=== PATIENT | male | born 1955 | race Two or more races ===

== ENCOUNTER 2017-04-24 12:02 | Inpatient (IN) | payer OTHER ==
--- NOTE | 2017-04-24 20:30 | HP ---
COWS - Scale Resting Pulse: 0= [place] 80 or Below Sweatin=Flushed/Facial Moisture Restless Observation: 1= Difficult to Sit Still Pupil Size: 1= Pupils >than Normal Bone or Joint Aches: 4=Acute Joint/Muscle Pain Runny Nose/ Eye Tearin= Runny Nose/Eyes GI Upset > 30mins: 0= None Tremor Observation: 2= Slight Tremor Visible Yawning Observation: 1= 1-2x During Session Anxiety or Irritability: 2=Irritable/Anxious Goose Flesh Skin: 0=Smooth Skin COWS Score: 15 Admission ROS S - HPI Chief Complaint: SEEKING DETOX FOR HEROIN DEPENDENCE Allergies/Adverse Reactions: Allergies Allergy/AdvReac Type Severity Reaction Status Date / Time No Known Allergies Allergy Verified 04/24/17 20:24 History of Present Illness: 62 Y.O. MALE WITH OPIATE AND COCAINE DEPENDENCE ADMITTED FOR DETOX TXMENT. THIS IS CLIENTS FIRST TIME HERE. REPORTS LAST DETOX OVER 10 YEARS AGO. STATES LONGEST CLEAN TIME 7 YEARS. RELAPSING 2011. Exam Limitations: No Limitations - Ebola screening Have you traveled outside of the country in the last 21 days: No Have you had contact with anyone from an Ebola affected area: No Have you been sick,other than usual withdrawal symptoms: No Do you have a fever: No - Review of Systems Constitutional: Chills, Loss of Appetite, Malaise, Night Sweats, Changes in sleep EENT: reports: Dental Problems (MISSING TEETH), Other (RINORRHEA) Respiratory: reports: No Symptoms reported Cardiac: reports: No Symptoms Reported GI: reports: Diarrhea, Nausea, Abdominal cramping : reports: No Symptoms Reported Musculoskeletal: reports: Back Pain, Joint Pain Integumentary: reports: No Symptoms Reported Neuro: reports: No Symptoms reported Endocrine: reports: Other (H/O DM) Hematology: reports: No Symptoms Reported Psychiatric: reports: Anxious Other Systems: Reviewed and Negative Patient History - Patient Medical History Hx Anemia: No Hx Asthma: No Hx Chronic Obstructive Pulmonary Disease (COPD): No Hx Cancer: No Hx Cardiac Disorders: No Hx Congestive Heart Failure: No Hx Hypertension: No Hx Hypercholesterolemia: No Hx Pacemaker: No HX Cerebrovascular Accident: No Hx Seizures: No Hx Dementia: No Hx Diabetes: Yes (ON METFORMIN/INSULIN) Hx Gastrointestinal Disorders: No Hx Liver Disease: No Hx Genitourinary Disorders: No Hx Sexually Transmitted Disorders: No Hx Renal Disease (ESRD): No Hx Thyroid Disease: No Hx Human Immunodeficiency Virus (HIV): No Hx Hepatitis C: No Hx Depression: No Hx Suicide Attempt: No Hx Bipolar Disorder: No Hx Schizophrenia: No Other Medical History: DENIES - Patient Surgical History Past Surgical History: Yes Hx Orthopedic Surgery: Yes (NECK 06/2016) Anesthesia Reaction: No - PPD History Previous Implant?: Yes Documented Results: Negative w/o proof Implanted On Prior [facility] Admission?: No PPD to be Administered?: Yes - Smoking Cessation Smoking history: Current every day smoker Have you smoked in the past 12 months: Yes Aproximately how many cigarettes per day: 13 Cigars Per Day: 0 Hx Chewing Tobacco Use: No Initiated information on smoking cessation: Yes 'Breaking Loose' booklet given: 04/24/17 - Substance & Tx. History Hx Alcohol Use: No Hx Substance Use: Yes Substance Use Type: Alcohol, Cocaine Hx Substance Use Treatment: Yes ([facility]) - Substances Abused HEROINE Route: Inhalation Frequency: Daily Amount used: 9 BAGS Age of first use: 41 Date of Last Use: 04/24/17 COCAINE Route: Smoking Frequency: 3-6 times per week Amount used: 140 DOLLARS/D Age of first use: 41 Date of Last Use: 04/22/17 Family Disease History - Family Disease History Family Disease History: Diabetes: Mother (), Heart Disease: Father ( KIDNEY FAILURE ETOH ABUSE ), Mother, Other: Father, Mother Admission Physical Exam BHS - Vital Signs Vital Signs: Vital Signs - 24 hr 04/24/17 20:18 Pulse Rate 66 Respiratory 18 Rate Blood Pressure 129/75 - Physical General Appearance: Yes: Appropriately Dressed, Mild Distress, Cachetic, Tremorous, Anxious HEENTM: Yes: EOMI, Normocephalic, Normal Voice, VINCE, Pharynx Normal, Rhinorrhea Respiratory: Yes: Chest Non-Tender, Lungs Clear, Normal Breath Sounds, No Respiratory Distress, No Accessory Muscle Use Neck: Yes: No masses,lesions,Nodules, Supple, Trachea in good position Breast: Yes: Breast Exam Deferred Cardiology: Yes: Regular Rhythm, Regular Rate, S1, S2 Abdominal: Yes: Normal Bowel Sounds, Non Tender, Soft Genitourinary: Yes: Within Normal Limits Back: Yes: Surgical Scar (NECK) Musculoskeletal: Yes: Other (UNSTEADY GAIT USE CANE FOR AMBULATION) Extremities: Yes: Normal Capillary Refill, Normal Range of Motion, Non-Tender, Tremors Neurological: Yes: Alert, Motor Strength 5/5 Integumentary: Yes: Normal Color, Warm Lymphatic: Yes: Within Normal Limits - Diagnostic (1) Opioid dependence with withdrawal Current Visit: Yes Status: Chronic (2) Cocaine dependence, uncomplicated Current Visit: Yes Status: Chronic (3) Nicotine dependence Current Visit: Yes Status: Acute Qualifiers: Nicotine product type: cigarettes Substance use status: uncomplicated Qualified Code(s): F17.210 - Nicotine dependence, cigarettes, uncomplicated (4) Diabetes Current Visit: Yes Status: Chronic Qualifiers: Diabetes mellitus type: type 2 Cleared for Admission [facility] - Detox or Rehab [facility] Level of Care: Medically Managed Detox Regimen/Protocol: Methadone [facility] Breath Alcohol Content Breath Alcohol Content: 0 Urine Drug Screen - Results Urine Drug Screen Results: CORBIN-Cocaine, OPI-Opiates
[2017-04-24] MEDS ORDERED: ACETAMINOPHEN 325 MG TABLET (FP) PO PRN (20:47)
[2017-04-24] MEDS ORDERED: MAGNESIUM HYDROX 2400MG/30ML ORAL SUSPENSION 30 ML CUP PO PRN (20:47)
[2017-04-24] MEDS ORDERED: IBUPROFEN 400 MG TABLET (FP) PO PRN (20:47)
[2017-04-24] MEDS ORDERED: MAG HYDROX/AL HYDROX/SIMETH 30 ML UNIT-DOSE CUP PO PRN (20:47)
[2017-04-24] MEDS ORDERED: LOPERAMIDE HCL 2 MG CAPSULE PO PRN (20:47)
[2017-04-24] MEDS ORDERED: MAGNESIUM CITRATE 300 ML BOTTLE PO PRN (20:47)
[2017-04-24] MEDS ORDERED: MENTHOL/PHENOL 1 EACH UD MM PRN (20:47)
[2017-04-24] MEDS ORDERED: guaiFENesin/D-METHORPHAN HB 10 ML UNIT-DOSE CUPS PO PRN (20:47)
[2017-04-24] MEDS ORDERED: P-EPHED 60MG/TRIPROLIDI 2.5MG TABLET PO PRN (20:47)
[2017-04-24] MEDS ORDERED: METHADONE HCL 10 MG TABLET (FOR DETOX USE ONLY) PO ONE ×2 (20:47→23:00)
[2017-04-24] MEDS: THIAMINE HCL 100 MG TABLET (FP) PO SCH (22:43)
[2017-04-24] MEDS: NICOTINE 21 MG/24 HOURS TOPICAL PATCH TD SCH (22:46)
[2017-04-24] MEDS: INSULIN DETEMIR 100 UNITS/ML MDV SQ SCH (22:47)
[2017-04-24] MEDS ORDERED: METHADONE HCL 10 MG TABLET (FOR DETOX USE ONLY) ONE (23:05)
[2017-04-25] MEDS: diazePAM 5 MG TABLET PO PRN ×3 (05:41→19:19)
[2017-04-25 09:52] LABS: MCHC 33.1 g/dl (32.0-35.9); MEAN CELL VOLUME 90.6 fl (80-96); MEAN PLT VOLUME 9.9 fl (7.5-11.1); PLATELET COUNT 281 K/MM3 (134-434); RDW 13.3 % (11.9-15.9); WHITE BLOOD COUNT 11.4 K/mm3 (4.0-10.0)
[2017-04-25] MEDS ORDERED: metFORMIN HCL 500 MG TABLET (FP) PO SCH (10:00)
[2017-04-25] MEDS ORDERED: METHADONE HCL 10 MG TABLET (FOR DETOX USE ONLY) PO ONE (10:00)
[2017-04-25 10:16] LABS: ALBUMIN 4.3 g/dl (3.4-5.0); BILIRUBIN,TOTAL 0.5 mg/dL (0.2-1.0); CALCIUM 9.7 mg/dL (8.5-10.1); COCKROFT - GAULT 43.54; CREATININE 1.6 mg/dL (0.7-1.3); TOT PROT 8.7 g/dl (6.4-8.2)
[2017-04-25] MEDS: PRENATAL VITAMINS W/ FOLIC ACID TABLET (FP) PO SCH (10:26)
[2017-04-25] MEDS: NICOTINE 21 MG/24 HOURS TOPICAL PATCH TD SCH (10:26)
--- NOTE | 2017-04-25 10:56 | PN ---
BHS COWS - Scale Resting Pulse: 0= [place] 80 or Below Sweatin= Chills/Flushing Restless Observation: 3= Extraneous Movement Pupil Size: 2= Moderately Dilated Bone or Joint Aches: 4=Acute Joint/Muscle Pain Runny Nose/ Eye Tearin= Nasal Congestion GI Upset > 30mins: 1= Stomach Cramp Tremor Observation of Outstretched Hands: 2= Slight Tremor Visible Yawning Observation: 2= >3x During Session Anxiety or Irritability: 1=Feels Anxious/Irritable Goose Flesh Skin: 0=Smooth Skin COWS Score: 17 BHS Progress Note (SOAP) Subjective: ANXIETY,SWEATS,MUSCLE ACHES,INTERMITTENT SLEEP Objective: 04/25/17 10:54 Vital Signs Temperature 97.1 F L 04/25/17 09:12 Pulse Rate 61 04/25/17 09:12 Respiratory Rate 18 04/25/17 09:12 Blood Pressure 140/90 04/25/17 09:12 O2 Sat by Pulse Oximetry (%) Laboratory Last Values WBC 11.4 K/mm3 (4.0-10.0) H 04/25/17 06:00 RBC 4.51 M/mm3 (4.00-5.60) 04/25/17 06:00 Hgb 13.5 GM/dL (11.7-16.9) 04/25/17 06:00 Hct 40.8 % (35.4-49) 04/25/17 06:00 MCV 90.6 fl (80-96) 04/25/17 06:00 MCHC 33.1 g/dl (32.0-35.9) 04/25/17 06:00 RDW 13.3 % (11.9-15.9) 04/25/17 06:00 Plt Count 281 K/MM3 (134-434) 04/25/17 06:00 MPV 9.9 fl (7.5-11.1) 04/25/17 06:00 Sodium 142 mmol/L (136-145) 04/25/17 06:00 Potassium 3.9 mmol/L (3.5-5.1) 04/25/17 06:00 Chloride 104 mmol/L (98-107) 04/25/17 06:00 Carbon Dioxide 27 mmol/L (21-32) 04/25/17 06:00 Anion Gap 11 (8-16) 04/25/17 06:00 BUN 23 mg/dL (7-18) H 04/25/17 06:00 Creatinine 1.6 mg/dL (0.7-1.3) H 04/25/17 06:00 Creat Clearance w eGFR 44.16 (>60) 04/25/17 06:00 POC Glucometer 200 UNITS (()) 04/25/17 05:44 Random Glucose 70 mg/dL (74-106) L 04/25/17 06:00 Calcium 9.7 mg/dL (8.5-10.1) 04/25/17 06:00 Total Bilirubin 0.5 mg/dL (0.2-1.0) 04/25/17 06:00 AST 14 U/L (15-37) L 04/25/17 06:00 ALT 15 U/L (12-78) 04/25/17 06:00 Alkaline Phosphatase 98 U/L (45-117) 04/25/17 06:00 Total Protein 8.7 g/dl (6.4-8.2) H 04/25/17 06:00 Albumin 4.3 g/dl (3.4-5.0) 04/25/17 06:00 LABS NOTED Assessment: 04/25/17 10:54 WITHDRAWAL SX Plan: CONTINUE DETOX
--- NOTE | 2017-04-25 13:12 | EKG ---
Test Reason : Blood Pressure : / mmHG Vent. Rate : 065 BPM Atrial Rate : 065 BPM P-R Int : 144 ms QRS Dur : 076 ms QT Int : 438 ms P-R-T Axes : 074 070 071 degrees QTc Int : 455 ms NORMAL SINUS RHYTHM POSSIBLE LEFT ATRIAL ENLARGEMENT BORDERLINE ECG NO PREVIOUS ECGS AVAILABLE Confirmed by SOMMER ZURITA, ANDREW ([id number]) on 04/25/2017 1:11:40 PM Referred By: Confirmed By:ANDREW NOVOA MD
[2017-04-25 13:37] LABS: SICKLE CELL SCREEN POSITIVE (NEGATIVE)
[2017-04-25 14:06] LABS: HIV 1 & 2 AB NEGATIVE; HIV 1 AGp24 NEGATIVE
[2017-04-25] MEDS: THIAMINE HCL 100 MG TABLET (FP) PO SCH (21:47)
[2017-04-25] MEDS: INSULIN DETEMIR 100 UNITS/ML MDV SQ SCH (21:49)
[2017-04-25] MEDS: hydrOXYzine PAMOATE 50 MG CAPSULE (FP) PO PRN (21:52)
[2017-04-25] MEDS: diphenhydrAMINE HCL 50 MG CAPSULE PO PRN (22:37)
[2017-04-26] MEDS: diazePAM 5 MG TABLET PO PRN ×6 (00:28→23:11)
[2017-04-26] MEDS ORDERED: METHADONE HCL 5 MG TABLET (FOR DETOX USE ONLY) PO ONE (10:00)
--- NOTE | 2017-04-26 10:18 | PN ---
S COWS - Scale Resting Pulse: 0= [place] 80 or Below Sweatin= Chills/Flushing Restless Observation: 3= Extraneous Movement Pupil Size: 2= Moderately Dilated Bone or Joint Aches: 4=Acute Joint/Muscle Pain Runny Nose/ Eye Tearin= Nasal Congestion GI Upset > 30mins: 1= Stomach Cramp Tremor Observation of Outstretched Hands: 2= Slight Tremor Visible Yawning Observation: 2= >3x During Session Anxiety or Irritability: 2=Irritable/Anxious Goose Flesh Skin: 0=Smooth Skin COWS Score: 18 BHS Progress Note (SOAP) Subjective: C/O FATIGUE,ANXIETY,IRRITABILITY. Objective: 04/26/17 10:17 Vital Signs Temperature 96 F L 04/26/17 08:55 Pulse Rate 78 04/26/17 08:55 Respiratory Rate 18 04/26/17 08:55 Blood Pressure 127/84 04/26/17 08:55 O2 Sat by Pulse Oximetry (%) Laboratory Last Values WBC 11.4 K/mm3 (4.0-10.0) H 04/25/17 06:00 RBC 4.51 M/mm3 (4.00-5.60) 04/25/17 06:00 Hgb 13.5 GM/dL (11.7-16.9) 04/25/17 06:00 Hct 40.8 % (35.4-49) 04/25/17 06:00 MCV 90.6 fl (80-96) 04/25/17 06:00 MCHC 33.1 g/dl (32.0-35.9) 04/25/17 06:00 RDW 13.3 % (11.9-15.9) 04/25/17 06:00 Plt Count 281 K/MM3 (134-434) 04/25/17 06:00 MPV 9.9 fl (7.5-11.1) 04/25/17 06:00 Sickle Cell Screen Positive (NEGATIVE) 04/25/17 06:00 Sodium 142 mmol/L (136-145) 04/25/17 06:00 Potassium 3.9 mmol/L (3.5-5.1) 04/25/17 06:00 Chloride 104 mmol/L (98-107) 04/25/17 06:00 Carbon Dioxide 27 mmol/L (21-32) 04/25/17 06:00 Anion Gap 11 (8-16) 04/25/17 06:00 BUN 23 mg/dL (7-18) H 04/25/17 06:00 Creatinine 1.6 mg/dL (0.7-1.3) H 04/25/17 06:00 Creat Clearance w eGFR 44.16 (>60) 04/25/17 06:00 POC Glucometer 409 UNITS (()) 04/25/17 21:06 Random Glucose 70 mg/dL (74-106) L 04/25/17 06:00 Calcium 9.7 mg/dL (8.5-10.1) 04/25/17 06:00 Total Bilirubin 0.5 mg/dL (0.2-1.0) 04/25/17 06:00 AST 14 U/L (15-37) L 04/25/17 06:00 ALT 15 U/L (12-78) 04/25/17 06:00 Alkaline Phosphatase 98 U/L (45-117) 04/25/17 06:00 Total Protein 8.7 g/dl (6.4-8.2) H 04/25/17 06:00 Albumin 4.3 g/dl (3.4-5.0) 04/25/17 06:00 RPR Titer Nonreactive (NONREACTIVE) 04/25/17 06:00 Hepatitis C Antibody >11.0 s/co ratio (0.0-0.9) H 04/24/17 06:00 HIV 1&2 Antibody Screen Negative 04/25/17 06:00 HIV P24 Antigen Negative 04/25/17 06:00 BUN AND CR NOTED HX OF HEP C WITH TREATMENT WITH [facility] FOR SEVERAL WEEKS. Assessment: 04/26/17 10:17 WITHDRAWAL SX Plan: CONTINUE DETOX REPEAT CMP IN AM
[2017-04-26] MEDS: PRENATAL VITAMINS W/ FOLIC ACID TABLET (FP) PO SCH (10:34)
[2017-04-26] MEDS: NICOTINE 21 MG/24 HOURS TOPICAL PATCH TD SCH (10:35)
[2017-04-26] MEDS ORDERED: INSULIN (NOVOLOG) ASPART 100 UNITS/ML 10ML VIAL ONE ×2 (16:21→21:25)
[2017-04-26] MEDS: INSULIN SLIDING SCALE (NOVOLOG) 1 VIAL SQ SCH ×2 (16:38→21:31)
[2017-04-26 20:16] LABS: URINE APPEARANCE CLEAR; URINE BILIRUBIN NEGATIVE (NEGATIVE); URINE BLOOD NEGATIVE (NEGATIVE); URINE COLOR COLORLESS; URINE GLUCOSE (UA) 3+ (NEGATIVE); URINE KETONE NEGATIVE (NEGATIVE); URINE LEUK ESTERASE NEGATIVE (NEGATIVE); URINE NITRITE NEGATIVE (NEGATIVE); URINE PROTEIN NEGATIVE (NEGATIVE); URINE UROBILINOGEN NEGATIVE E.U./dl (0.2-1.0)
[2017-04-26] MEDS ORDERED: INSULIN DETEMIR 100 UNITS/ML MDV SQ ONE (21:26)
[2017-04-26] MEDS: THIAMINE HCL 100 MG TABLET (FP) PO SCH (21:30)
[2017-04-26] MEDS: diphenhydrAMINE HCL 50 MG CAPSULE PO PRN (21:30)
[2017-04-26] MEDS: INSULIN DETEMIR 100 UNITS/ML MDV SQ SCH (21:30)
[2017-04-27] MEDS: diazePAM 5 MG TABLET PO PRN ×3 (05:50→18:04)
[2017-04-27] MEDS: INSULIN SLIDING SCALE (NOVOLOG) 1 VIAL SQ SCH ×4 (07:10→22:03)
[2017-04-27] MEDS ORDERED: INSULIN (NOVOLOG) ASPART 100 UNITS/ML 10ML VIAL ONE ×3 (07:12→21:45)
[2017-04-27] MEDS ORDERED: METHADONE HCL 5 MG TABLET (FOR DETOX USE ONLY) PO ONE (10:00)
[2017-04-27] MEDS: PRENATAL VITAMINS W/ FOLIC ACID TABLET (FP) PO SCH (10:25)
[2017-04-27] MEDS: NICOTINE 21 MG/24 HOURS TOPICAL PATCH TD SCH (10:25)
[2017-04-27 11:37] LABS: ALBUMIN 3.4 g/dl (3.4-5.0); ALK PHOS 83 U/L (45-117); ANION GAP 9 (8-16); BILIRUBIN,TOTAL 0.4 mg/dL (0.2-1.0); CALCIUM 9.2 mg/dL (8.5-10.1); CO2 25 mmol/L (21-32); COCKROFT - GAULT 63.34; CREATININE 1.1 mg/dL (0.7-1.3); GLUCOSE,RANDOM 178 mg/dL (74-106); SGOT/AST 14 U/L (15-37); SGPT/ALT 13 U/L (12-78); TOT PROT 6.9 g/dl (6.4-8.2)
--- NOTE | 2017-04-27 13:37 | PN ---
S Progress Note (SOAP) Subjective: leg and shoulder pain,sweats,diarrhea Objective: 04/27/17 13:36 Vital Signs - 8 hr 04/27/17 04/27/17 06:31 10:30 Temperature 97.7 F 97.8 F Pulse Rate 86 81 Respiratory 18 18 Rate Blood Pressure 121/84 126/84 Laboratory Last Values WBC 11.4 K/mm3 (4.0-10.0) H 04/25/17 06:00 RBC 4.51 M/mm3 (4.00-5.60) 04/25/17 06:00 Hgb 13.5 GM/dL (11.7-16.9) 04/25/17 06:00 Hct 40.8 % (35.4-49) 04/25/17 06:00 MCV 90.6 fl (80-96) 04/25/17 06:00 MCHC 33.1 g/dl (32.0-35.9) 04/25/17 06:00 RDW 13.3 % (11.9-15.9) 04/25/17 06:00 Plt Count 281 K/MM3 (134-434) 04/25/17 06:00 MPV 9.9 fl (7.5-11.1) 04/25/17 06:00 Sickle Cell Screen Positive (NEGATIVE) 04/25/17 06:00 Sodium 140 mmol/L (136-145) 04/27/17 07:50 Potassium 4.2 mmol/L (3.5-5.1) 04/27/17 07:50 Chloride 106 mmol/L (98-107) 04/27/17 07:50 Carbon Dioxide 25 mmol/L (21-32) 04/27/17 07:50 Anion Gap 9 (8-16) 04/27/17 07:50 BUN 20 mg/dL (7-18) H 04/27/17 07:50 Creatinine 1.1 mg/dL (0.7-1.3) D 04/27/17 07:50 Creat Clearance w eGFR > 60 (>60) 04/27/17 07:50 POC Glucometer 209 UNITS (()) 04/27/17 05:52 Random Glucose 178 mg/dL (74-106) H D 04/27/17 07:50 Calcium 9.2 mg/dL (8.5-10.1) 04/27/17 07:50 Total Bilirubin 0.4 mg/dL (0.2-1.0) 04/27/17 07:50 AST 14 U/L (15-37) L 04/27/17 07:50 ALT 13 U/L (12-78) 04/27/17 07:50 Alkaline Phosphatase 83 U/L (45-117) 04/27/17 07:50 Total Protein 6.9 g/dl (6.4-8.2) D 04/27/17 07:50 Albumin 3.4 g/dl (3.4-5.0) D 04/27/17 07:50 Urine Color Colorless 04/26/17 19:35 Urine Appearance Clear 04/26/17 19:35 Urine pH 7.0 (5.0-8.0) 04/26/17 19:35 Ur Specific [place] 1.010 (1.005-1.025) 04/26/17 19:35 Urine Protein Negative (NEGATIVE) 04/26/17 19:35 Urine Glucose (UA) 3+ (NEGATIVE) H 04/26/17 19:35 Urine Ketones Negative (NEGATIVE) 04/26/17 19:35 Urine Blood Negative (NEGATIVE) 04/26/17 19:35 Urine Nitrite Negative (NEGATIVE) 04/26/17 19:35 Urine Bilirubin Negative (NEGATIVE) 04/26/17 19:35 Urine Urobilinogen Negative E.U./dl (0.2-1.0) 04/26/17 19:35 Ur Leukocyte Esterase Negative (NEGATIVE) 04/26/17 19:35 RPR Titer Nonreactive (NONREACTIVE) 04/25/17 06:00 Hepatitis C Antibody >11.0 s/co ratio (0.0-0.9) H 04/24/17 06:00 HIV 1&2 Antibody Screen Negative 04/25/17 06:00 HIV P24 Antigen Negative 04/25/17 06:00 labs noted Assessment: 04/27/17 13:37 withdrawal sx Plan: continue detox
[2017-04-27] MEDS: hydrOXYzine PAMOATE 50 MG CAPSULE (FP) PO PRN (17:20)
[2017-04-27] MEDS: THIAMINE HCL 100 MG TABLET (FP) PO SCH (22:02)
[2017-04-27] MEDS: INSULIN DETEMIR 100 UNITS/ML MDV SQ SCH (22:03)
[2017-04-27] MEDS: diphenhydrAMINE HCL 50 MG CAPSULE PO PRN (22:04)
[2017-04-28] MEDS: hydrOXYzine PAMOATE 50 MG CAPSULE (FP) PO PRN ×2 (06:09→15:24)
[2017-04-28] MEDS: INSULIN SLIDING SCALE (NOVOLOG) 1 VIAL SQ SCH ×4 (06:27→21:45)
[2017-04-28] MEDS ORDERED: INSULIN (NOVOLOG) ASPART 100 UNITS/ML 10ML VIAL ONE ×3 (06:29→21:13)
[2017-04-28] MEDS ORDERED: METHADONE HCL 10 MG TABLET (FOR DETOX USE ONLY) PO ONE (10:00)
[2017-04-28] MEDS: NICOTINE 21 MG/24 HOURS TOPICAL PATCH TD SCH (10:32)
[2017-04-28] MEDS: PRENATAL VITAMINS W/ FOLIC ACID TABLET (FP) PO SCH (10:32)
--- NOTE | 2017-04-28 15:56 | PN ---
S Progress Note (SOAP) Subjective: N/V/D, anxious, sweating, interrupted sleep Objective: 04/28/17 15:51 Last Vital Signs Temp Pulse Resp BP Pulse Ox 98.8 F 88 18 119/86 04/28/17 13:46 04/28/17 13:46 04/28/17 13:46 04/28/17 13:46 Laboratory Tests 04/24/17 04/24/17 04/24/17 06:00 21:24 22:40 WBC RBC Hgb Hct MCV MCHC RDW Plt Count MPV Sickle Cell Screen Sodium Potassium Chloride Carbon Dioxide Anion Gap BUN Creatinine Creat Clearance w eGFR POC Glucometer 136 105 Random Glucose Calcium Total Bilirubin AST ALT Alkaline Phosphatase Total Protein Albumin Urine Color Urine Appearance Urine pH Ur Specific [place] Urine Protein Urine Glucose (UA) Urine Ketones Urine Blood Urine Nitrite Urine Bilirubin Urine Urobilinogen Ur Leukocyte Esterase RPR Titer Hepatitis C Antibody >11.0 H HIV 1&2 Antibody Screen HIV P24 Antigen 04/25/17 04/25/17 04/25/17 05:44 06:00 06:00 WBC 11.4 H RBC 4.51 Hgb 13.5 Hct 40.8 MCV 90.6 MCHC 33.1 RDW 13.3 Plt Count 281 MPV 9.9 Sickle Cell Screen Positive Sodium 142 Potassium 3.9 Chloride 104 Carbon Dioxide 27 Anion Gap 11 BUN 23 H Creatinine 1.6 H Creat Clearance w eGFR 44.16 POC Glucometer 200 Random Glucose 70 L Calcium 9.7 Total Bilirubin 0.5 AST 14 L ALT 15 Alkaline Phosphatase 98 Total Protein 8.7 H Albumin 4.3 Urine Color Urine Appearance Urine pH Ur Specific [place] Urine Protein Urine Glucose (UA) Urine Ketones Urine Blood Urine Nitrite Urine Bilirubin Urine Urobilinogen Ur Leukocyte Esterase RPR Titer Hepatitis C Antibody HIV 1&2 Antibody Screen HIV P24 Antigen 04/25/17 04/25/17 04/25/17 06:00 06:00 21:06 WBC RBC Hgb Hct MCV MCHC RDW Plt Count MPV Sickle Cell Screen Sodium Potassium Chloride Carbon Dioxide Anion Gap BUN Creatinine Creat Clearance w eGFR POC Glucometer 409 Random Glucose Calcium Total Bilirubin AST ALT Alkaline Phosphatase Total Protein Albumin Urine Color Urine Appearance Urine pH Ur Specific [place] Urine Protein Urine Glucose (UA) Urine Ketones Urine Blood Urine Nitrite Urine Bilirubin Urine Urobilinogen Ur Leukocyte Esterase RPR Titer Nonreactive Hepatitis C Antibody HIV 1&2 Antibody Screen Negative HIV P24 Antigen Negative 04/26/17 04/26/17 04/26/17 16:07 19:35 21:20 WBC RBC Hgb Hct MCV MCHC RDW Plt Count MPV Sickle Cell Screen Sodium Potassium Chloride Carbon Dioxide Anion Gap BUN Creatinine Creat Clearance w eGFR POC Glucometer 448 374 Random Glucose Calcium Total Bilirubin AST ALT Alkaline Phosphatase Total Protein Albumin Urine Color Colorless Urine Appearance Clear Urine pH 7.0 Ur Specific [place] 1.010 Urine Protein Negative Urine Glucose (UA) 3+ H Urine Ketones Negative Urine Blood Negative Urine Nitrite Negative Urine Bilirubin Negative Urine Urobilinogen Negative Ur Leukocyte Esterase Negative RPR Titer Hepatitis C Antibody HIV 1&2 Antibody Screen HIV P24 Antigen 04/27/17 04/27/17 04/27/17 05:52 07:50 21:34 WBC RBC Hgb Hct MCV MCHC RDW Plt Count MPV Sickle Cell Screen Sodium 140 Potassium 4.2 Chloride 106 Carbon Dioxide 25 Anion Gap 9 BUN 20 H Creatinine 1.1 D Creat Clearance w eGFR > 60 POC Glucometer 209 490 Random Glucose 178 H D Calcium 9.2 Total Bilirubin 0.4 AST 14 L ALT 13 Alkaline Phosphatase 83 Total Protein 6.9 D Albumin 3.4 D Urine Color Urine Appearance Urine pH Ur Specific [place] Urine Protein Urine Glucose (UA) Urine Ketones Urine Blood Urine Nitrite Urine Bilirubin Urine Urobilinogen Ur Leukocyte Esterase RPR Titer Hepatitis C Antibody HIV 1&2 Antibody Screen HIV P24 Antigen 04/28/17 06:08 WBC RBC Hgb Hct MCV MCHC RDW Plt Count MPV Sickle Cell Screen Sodium Potassium Chloride Carbon Dioxide Anion Gap BUN Creatinine Creat Clearance w eGFR POC Glucometer 322 Random Glucose Calcium Total Bilirubin AST ALT Alkaline Phosphatase Total Protein Albumin Urine Color Urine Appearance Urine pH Ur Specific [place] Urine Protein Urine Glucose (UA) Urine Ketones Urine Blood Urine Nitrite Urine Bilirubin Urine Urobilinogen Ur Leukocyte Esterase RPR Titer Hepatitis C Antibody HIV 1&2 Antibody Screen HIV P24 Antigen Labs noted: WBC 11.4, bun 20, serum creatinine 1.1, serum glucose 178, fs 322, UA: 3+ glucose Assessment: 04/28/17 15:52 Withdrawal symptoms Noted with leukocytosis, pre renal azotemia, hyperglycemia due to DMT2, glycosuria Plan: Continue detox Leukocytosis: asymptomatic, repeat CBC Pre renal azotemia: encouraged to drink lots of water (water pitcher), repeat BMP Hyperglycemia secondary to DMT2: continue insulin, start metformin 500mg PO bid , continue finger sticks Glycosuria: encouraged to drink lots of water, repeat UA
[2017-04-28] MEDS: metFORMIN HCL 500 MG TABLET (FP) PO SCH (16:24)
[2017-04-28] MEDS: THIAMINE HCL 100 MG TABLET (FP) PO SCH (21:42)
[2017-04-28] MEDS: diphenhydrAMINE HCL 50 MG CAPSULE PO PRN (21:42)
[2017-04-28] MEDS: INSULIN DETEMIR 100 UNITS/ML MDV SQ SCH (21:44)
[2017-04-29] MEDS ORDERED: METHADONE HCL 5 MG TABLET (FOR DETOX USE ONLY) PO ONE (06:00)
[2017-04-29] MEDS: metFORMIN HCL 500 MG TABLET (FP) PO SCH ×2 (07:16→17:09)
[2017-04-29] MEDS: INSULIN SLIDING SCALE (NOVOLOG) 1 VIAL SQ SCH ×4 (07:17→22:19)
[2017-04-29] MEDS ORDERED: INSULIN (NOVOLOG) ASPART 100 UNITS/ML 10ML VIAL ONE ×3 (07:32→21:47)
[2017-04-29] MEDS: NICOTINE 21 MG/24 HOURS TOPICAL PATCH TD SCH (10:23)
[2017-04-29] MEDS: PRENATAL VITAMINS W/ FOLIC ACID TABLET (FP) PO SCH (10:23)
[2017-04-29 14:18] LABS: BASOPHIL 0.4 % (0-2.0); EOSINOPHIL 2.5 % (0-4.5); MCH 30.6 pg (25.7-33.7); MCHC 33.8 g/dl (32.0-35.9); MEAN CELL VOLUME 90.3 fl (80-96); MEAN PLT VOLUME 9.2 fl (7.5-11.1); PLATELET COUNT 249 K/MM3 (134-434); RDW 13.3 % (11.9-15.9); WHITE BLOOD COUNT 10.6 K/mm3 (4.0-10.0)
[2017-04-29 14:22] LABS: URINE APPEARANCE CLEAR; URINE BILIRUBIN NEGATIVE (NEGATIVE); URINE BLOOD NEGATIVE (NEGATIVE); URINE COLOR STRAW; URINE GLUCOSE (UA) 3+ (NEGATIVE); URINE KETONE NEGATIVE (NEGATIVE); URINE LEUK ESTERASE NEGATIVE (NEGATIVE); URINE NITRITE NEGATIVE (NEGATIVE); URINE PROTEIN NEGATIVE (NEGATIVE); URINE UROBILINOGEN NEGATIVE E.U./dl (0.2-1.0)
[2017-04-29 14:24] LABS: CALCIUM 9.4 mg/dL (8.5-10.1); COCKROFT - GAULT 58.06; CREATININE 1.2 mg/dL (0.7-1.3)
--- NOTE | 2017-04-29 14:33 | PN ---
BHS Progress Note (SOAP) Subjective: Sweating, anxious, interrupted sleep Objective: 04/29/17 14:27 Last Vital Signs Temp Pulse Resp BP Pulse Ox 98.7 F 85 18 122/88 04/29/17 13:49 04/29/17 13:49 04/29/17 13:49 04/29/17 13:49 Laboratory Tests 04/24/17 04/24/17 04/24/17 06:00 21:24 22:40 WBC RBC Hgb Hct MCV MCHC RDW Plt Count MPV Sickle Cell Screen Sodium Potassium Chloride Carbon Dioxide Anion Gap BUN Creatinine Creat Clearance w eGFR POC Glucometer 136 105 Random Glucose Calcium Total Bilirubin AST ALT Alkaline Phosphatase Total Protein Albumin Urine Color Urine Appearance Urine pH Ur Specific [place] Urine Protein Urine Glucose (UA) Urine Ketones Urine Blood Urine Nitrite Urine Bilirubin Urine Urobilinogen Ur Leukocyte Esterase RPR Titer Hepatitis C Antibody >11.0 H HIV 1&2 Antibody Screen HIV P24 Antigen 04/25/17 04/25/17 04/25/17 05:44 06:00 06:00 WBC 11.4 H RBC 4.51 Hgb 13.5 Hct 40.8 MCV 90.6 MCHC 33.1 RDW 13.3 Plt Count 281 MPV 9.9 Sickle Cell Screen Positive Sodium 142 Potassium 3.9 Chloride 104 Carbon Dioxide 27 Anion Gap 11 BUN 23 H Creatinine 1.6 H Creat Clearance w eGFR 44.16 POC Glucometer 200 Random Glucose 70 L Calcium 9.7 Total Bilirubin 0.5 AST 14 L ALT 15 Alkaline Phosphatase 98 Total Protein 8.7 H Albumin 4.3 Urine Color Urine Appearance Urine pH Ur Specific [place] Urine Protein Urine Glucose (UA) Urine Ketones Urine Blood Urine Nitrite Urine Bilirubin Urine Urobilinogen Ur Leukocyte Esterase RPR Titer Hepatitis C Antibody HIV 1&2 Antibody Screen HIV P24 Antigen 04/25/17 04/25/17 04/25/17 06:00 06:00 21:06 WBC RBC Hgb Hct MCV MCHC RDW Plt Count MPV Sickle Cell Screen Sodium Potassium Chloride Carbon Dioxide Anion Gap BUN Creatinine Creat Clearance w eGFR POC Glucometer 409 Random Glucose Calcium Total Bilirubin AST ALT Alkaline Phosphatase Total Protein Albumin Urine Color Urine Appearance Urine pH Ur Specific [place] Urine Protein Urine Glucose (UA) Urine Ketones Urine Blood Urine Nitrite Urine Bilirubin Urine Urobilinogen Ur Leukocyte Esterase RPR Titer Nonreactive Hepatitis C Antibody HIV 1&2 Antibody Screen Negative HIV P24 Antigen Negative 04/26/17 04/26/17 04/26/17 16:07 19:35 21:20 WBC RBC Hgb Hct MCV MCHC RDW Plt Count MPV Sickle Cell Screen Sodium Potassium Chloride Carbon Dioxide Anion Gap BUN Creatinine Creat Clearance w eGFR POC Glucometer 448 374 Random Glucose Calcium Total Bilirubin AST ALT Alkaline Phosphatase Total Protein Albumin Urine Color Colorless Urine Appearance Clear Urine pH 7.0 Ur Specific [place] 1.010 Urine Protein Negative Urine Glucose (UA) 3+ H Urine Ketones Negative Urine Blood Negative Urine Nitrite Negative Urine Bilirubin Negative Urine Urobilinogen Negative Ur Leukocyte Esterase Negative RPR Titer Hepatitis C Antibody HIV 1&2 Antibody Screen HIV P24 Antigen 04/27/17 04/27/17 04/27/17 05:52 07:50 21:34 WBC RBC Hgb Hct MCV MCHC RDW Plt Count MPV Sickle Cell Screen Sodium 140 Potassium 4.2 Chloride 106 Carbon Dioxide 25 Anion Gap 9 BUN 20 H Creatinine 1.1 D Creat Clearance w eGFR > 60 POC Glucometer 209 490 Random Glucose 178 H D Calcium 9.2 Total Bilirubin 0.4 AST 14 L ALT 13 Alkaline Phosphatase 83 Total Protein 6.9 D Albumin 3.4 D Urine Color Urine Appearance Urine pH Ur Specific [place] Urine Protein Urine Glucose (UA) Urine Ketones Urine Blood Urine Nitrite Urine Bilirubin Urine Urobilinogen Ur Leukocyte Esterase RPR Titer Hepatitis C Antibody HIV 1&2 Antibody Screen HIV P24 Antigen 04/28/17 04/29/17 04/29/17 06:08 05:24 07:12 WBC RBC Hgb Hct MCV MCHC RDW Plt Count MPV Sickle Cell Screen Sodium 139 Potassium 4.7 Chloride 102 Carbon Dioxide 26 Anion Gap 11 BUN 22 H Creatinine 1.2 Creat Clearance w eGFR POC Glucometer 322 317 Random Glucose 231 H D Calcium 9.4 Total Bilirubin AST ALT Alkaline Phosphatase Total Protein Albumin Urine Color Urine Appearance Urine pH Ur Specific [place] Urine Protein Urine Glucose (UA) Urine Ketones Urine Blood Urine Nitrite Urine Bilirubin Urine Urobilinogen Ur Leukocyte Esterase RPR Titer Hepatitis C Antibody HIV 1&2 Antibody Screen HIV P24 Antigen Labs noted Assessment: 04/29/17 14:28 Withdrawal symptoms Noted with prerenal azotemia, leukocytosis, hyperglycemia and glycosuria secondary to DMT2 Plan: Continue detox Prerenal azotemia: encouraged to drink lots of water, follow up on BMP result Leukocytosis: asymptomatic, follow up on CBC result (in progress) Hyperglycemia and glycosuria secondary to DMT2: encouraged to drink lots of water, follow up on UA result (in progress), continue diabetic regimen
[2017-04-29] MEDS: THIAMINE HCL 100 MG TABLET (FP) PO SCH (22:19)
[2017-04-29] MEDS: INSULIN DETEMIR 100 UNITS/ML MDV SQ SCH (22:20)
[2017-04-29] MEDS: diphenhydrAMINE HCL 50 MG CAPSULE PO PRN (22:20)
[2017-04-30 06:20] VITALS: BP 118/89; PULSE 87; TEMP 97.3
[2017-04-30] MEDS: INSULIN SLIDING SCALE (NOVOLOG) 1 VIAL SQ SCH (07:34)
[2017-04-30] MEDS: metFORMIN HCL 500 MG TABLET (FP) PO SCH (07:35)
--- NOTE | 2017-04-30 08:43 | DS ---
[facility] Detox Discharge Summary Admission Date: 04/24/17 Discharge Date: 04/30/17 - History Present History: Cocaine Dependence, Opioid Dependence Additional Comments: DETOX COMPLETED.ALERT O X 3.NAD. Pertinent Past History: DM - Physical Exam Results Vital Signs: Vital Signs Temperature 97.3 F L 04/30/17 06:20 Pulse Rate 87 04/30/17 06:20 Respiratory Rate 18 04/30/17 06:20 Blood Pressure 118/89 04/30/17 06:20 O2 Sat by Pulse Oximetry (%) Pertinent Admission Physical Exam Findings: WITHDRAWAL SX - Treatment Hospital Course: Detox Protocol Followed, Detoxed Safely, Responded well, Discharged Condition Good - Medication Discharge Medications: Ambulatory Orders Insulin (Levemir) [Levemir Vial] 55 unit SQ DAILY 04/24/17 Metformin HCl [Glucophage -] 1,000 mg PO DAILY 04/24/17 - Diagnosis (1) Nicotine dependence Current Visit: Yes Status: Acute Qualifiers: Nicotine product type: cigarettes Substance use status: uncomplicated Qualified Code(s): F17.210 - Nicotine dependence, cigarettes, uncomplicated (2) Cocaine dependence, uncomplicated Current Visit: Yes Status: Chronic (3) Diabetes Current Visit: Yes Status: Chronic Qualifiers: Diabetes mellitus type: type 2 (4) Opioid dependence with withdrawal Current Visit: Yes Status: Chronic - AMA Did Patient Leave Against Medical Advice: No
[2017-05-01 14:17] LABS: Hgb A2 3.9 % (0.7-3.1)
== END 2017-04-30 09:54 | disposition home or self-care (01) | DRG 897 ==
LOC: YASAS 12:02 → Y3N 21:11
PROVIDERS: ADMIT Internal Medicine; ATTEND Internal Medicine
PROC: HZ2ZZZZ Detoxification Services for Substance Abuse Treatment (ICD-10-PCS; principal; 2017-04-24)
DX: F11.23 Opioid dependence with withdrawal (principal); F14.20 Cocaine dependence, uncomplicated; F17.210 Nicotine dependence, cigarettes, uncomplicated; B18.2 Chronic viral hepatitis C; E11.65 Type 2 diabetes mellitus with hyperglycemia; R79.89 Other specified abnormal findings of blood chemistry; R81 Glycosuria; Z79.4 Long term (current) use of insulin; Z79.84 Long term (current) use of oral hypoglycemic drugs; D72.829 Elevated white blood cell count, unspecified
CPT/HCPCS: 36415; 80048; 80053; 81003; 83021; 85025; 85027; 85660; 86593; 86803; 87389; 87522; 93005; 93010